=== PATIENT | male | born 1960 | race Caucasian/White ===

== ENCOUNTER 2017-06-23 13:12 | Emergency (ER) | payer MEDICAID ==
[~2017-06-23] VITALS: Wt 65.0 kg
[~2017-06-23 13:12] MED LIST: ASPI-664 PO; DOCU-144 PO; HYDR-902 PO
[2017-06-23] MEDS ORDERED: KETOROLAC 30 MG INJ IM STA (14:10)
[2017-06-23] MEDS ORDERED: DIAZEPAM 5 MG TAB PO ONE (14:30)
[2017-06-23] MEDS ORDERED: HYDROmorphONE 1 MG/ML SYG IV STA (15:02)
[2017-06-23 16:23] LABS: BASOPHILS % 0.3 % (0.0-2.0); EOSINOPHILS # 0.2 10^3/ul (0.0-0.5); EOSINOPHILS % 3.4 % (0.0-7.0); HEMATOCRIT 45.4 % (42.0-52.0); HEMOGLOBIN 15.3 g/dl (14.0-18.0); LYMPHOCYTES # 2.4 10^3/ul (0.8-2.9); LYMPHOCYTES % 36.5 % (15.0-51.0); MEAN CORPUSCULAR HEMOGLOBIN 28.6 pg (29.0-33.0); MEAN CORPUSCULAR HGB CONC 33.7 g/dl (32.0-37.0); MEAN CORPUSCULAR VOLUME 84.9 fl (82.0-101.0); MEAN PLATELET VOLUME 11.3 fl (7.4-10.4); MONOCYTE # 0.5 10^3/ul (0.3-0.9); MONOCYTES % 7.8 % (0.0-11.0); NEUTROPHILS % 51.8 % (39.0-77.0); PLATELET COUNT 195 10^3/UL (140-415); RED BLOOD COUNT 5.35 10^6/ul (4.70-6.10); RED CELL DISTRIBUTION WIDTH 14.6 % (11.5-14.5); WHITE BLOOD COUNT 6.6 10^3/ul (4.8-10.8)
[2017-06-23 16:25] LABS: ADD UMIC NO; UR ASCORBIC ACID NEGATIVE (NEGATIVE); UR BILIRUBIN (Dip) NEGATIVE (NEGATIVE); UR BLOOD (Dip) NEGATIVE (NEGATIVE); UR CLARITY CLEAR (CLEAR); UR COLOR STRAW (YELLOW); UR GLUCOSE (Dip) NEGATIVE (NEGATIVE); UR KETONES (Dip) NEGATIVE (NEGATIVE); UR LEUKOCYTE ESTERASE (Dip) NEGATIVE Leu/ul (NEGATIVE); UR NITRITE (Dip) NEGATIVE (NEGATIVE); UR SPECIFIC GRAVITY (Dip) 1.011 (1.003-1.030); UR TOTAL PROTEIN (Dip) NEGATIVE (NEGATIVE); UR UROBILINOGEN (Dip) NEGATIVE (NEGATIVE)
--- NOTE | 2017-06-23 16:28 | RADRPT ---
PROCEDURE: XR Lumbar Spine. CLINICAL INDICATION: Back pain. TECHNIQUE: Three views. AP, lateral and cone-down lateral view of the lumbar spine were obtained. COMPARISON: No prior studies are available for comparison. FINDINGS: There is normal stature and alignment of the vertebrae. There is no fracture. There is no lytic or blastic lesion. The disk height is normal. The paravertebral soft tissues are unremarkable. IMPRESSION: 1. Unremarkable images of the lumbar spine. RPTAT: QQ .Brody Hough MD, Date Time Electronically viewed and signed by .Brody Hough MD, on 06/23/2017 16:28 .R/
[2017-06-23 16:47] LABS: ALBUMIN 3.9 g/dl (3.3-4.9); ALBUMIN/GLOBULIN RATIO 1.02; BILIRUBIN,INDIRECT 0.5 mg/dl (0-1.1); BILIRUBIN,TOTAL 0.5 mg/dl (0.2-1.3); CALCIUM 9.4 mg/dl (8.4-10.2); CREATININE 0.8 mg/dl (0.61-1.24); POTASSIUM 3.8 mmol/L (3.5-5.1); TOTAL PROTEIN 7.7 g/dl (6.1-8.1)
[2017-06-23] MEDS ORDERED: CYCL-319 PO (17:03)
[2017-06-23] MEDS ORDERED: NAPR-260 PO (17:03)
--- NOTE | 2017-06-23 21:37 | ERD ---
ER Documentation Chief Complaint Date/Time DATE: 06/23/17 TIME: 21:34 Chief Complaint BACK PAIN HPI This is a 57-year-old male presenting to the emergency department complaining of lumbar back pain that radiates down his right lower leg for the past 3 days. Patient states that he is unable to walk. He has not taken any medications for this. Denies any fevers. Denies any saddle anesthesia bladder or bowel incontinence ROS All systems reviewed and are negative except as per history of present illness. Medications Home Meds Active Scripts Naproxen* (Naprosyn*) 500 Mg Tablet, 500 MG PO BID, #30 TAB Prov:GUSTAVO ARANDA PA-C 06/23/17 Cyclobenzaprine Hcl* (Cyclobenzaprine Hcl*) 10 Mg Tablet, 10 MG PO TID, #30 TAB Prov:GUSTAVO ARANDA PA-C 06/23/17 Docusate Sodium* (Colace*) 100 Mg Capsule, 100 MG PO TID, #30 CAP Prov:CAROLE PATHAK MD 06/28/16 Hydrocodone/Acetaminophen ([place] 10-325 Tablet) 1 Each Tablet, 1 TAB PO Q6H Y for PAIN, #12 TAB Prov:CAROLE PATHAK MD 06/28/16 Reported Medications Aspirin (Low Dose Aspirin) 81 Mg Tablet.dr, 81 MG PO DAILY, #30 TAB 03/27/16 Allergies Allergies: Coded Allergies: No Known Allergy (Unverified , 06/28/16) PMhx/Soc History of Surgery: Yes (HEART STENT X3, HERNIA REPAIR, APPY, cabg) Anesthesia Reaction: No Hx Neurological Disorder: No Hx Respiratory Disorders: No Hx Cardiac Disorders: Yes (CAD) Hx Psychiatric Problems: No Hx Miscellaneous Medical Probl: No Hx Alcohol Use: No Hx Substance Use: No Hx Tobacco Use: No Smoking Status: Never smoker Physical Exam Vitals Vital Signs Date Time Temp Pulse Resp B/P Pulse Ox O2 Delivery O2 Flow Rate FiO2 06/23/17 13:14 97.6 61 18 115/67 98 Physical Exam GENERAL: WD/WN, in no apparent distress, non-toxic appearing HENT: NC/AT EYES: Conjunctiva normal NECK: Supple PULM: Normal labored breathing CV: Good capillary refill GI: Non-distended, no guarding BACK: no deformities noted, normal spinal curvature, TTP on lumbar region, non- tender on spine midline, EXT: No clubbing, cyanosis, or edema NEURO: Moves on all fours, sensation intact, normal gait SKIN: intact PSYCH: Normal mood Result Diagram: 06/23/17 1605 06/23/17 1605 Results 24 hrs Laboratory Tests Test 06/23/17 16:05 06/23/17 16:15 White Blood Count 6.610^3/ul Red Blood Count 5.3510^6/ul Hemoglobin 15.3g/dl Hematocrit 45.4% Mean Corpuscular Volume 84.9fl Mean Corpuscular Hemoglobin 28.6pg Mean Corpuscular Hemoglobin Concent 33.7g/dl Red Cell Distribution Width 14.6% Platelet Count 36982^3/UL Mean Platelet Volume 11.3fl Neutrophils % 51.8% Lymphocytes % 36.5% Monocytes % 7.8% Eosinophils % 3.4% Basophils % 0.3% Nucleated Red Blood Cells % 0.0/100WBC Neutrophils # (Manual) 3.410^3/ul Lymphocytes # 2.410^3/ul Monocytes # 0.510^3/ul Eosinophils # 0.210^3/ul Basophils # 0.010^3/ul Nucleated Red Blood Cells # 0.010^3/ul Sodium Level 138mmol/L Potassium Level 3.8mmol/L Chloride Level 102mmol/L Carbon Dioxide Level 25mmol/L Anion Gap 15 Blood Urea Nitrogen 17mg/dl Creatinine 0.80mg/dl Glucose Level 78mg/dl Calcium Level 9.4mg/dl Total Bilirubin 0.5mg/dl Direct Bilirubin 0.00mg/dl Indirect Bilirubin 0.5mg/dl Aspartate Amino Transf (AST/SGOT) 26IU/L Alanine Aminotransferase (ALT/SGPT) 31IU/L Alkaline Phosphatase 89IU/L Total Protein 7.7g/dl Albumin 3.9g/dl Globulin 3.80g/dl Albumin/Globulin Ratio 1.02 Urine Color STRAW Urine Clarity CLEAR Urine pH 6.0 Urine Specific [place] 1.011 Urine Ketones NEGATIVEmg/dL Urine Nitrite NEGATIVEmg/dL Urine Bilirubin NEGATIVEmg/dL Urine Urobilinogen NEGATIVEmg/dL Urine Leukocyte Esterase NEGATIVELeu/ul Urine Hemoglobin NEGATIVEmg/dL Urine Glucose NEGATIVEmg/dL Urine Total Protein NEGATIVEmg/dl Current Medications Medications (Trade) Dose Ordered Sig/Darshan Route PRN Reason Start Time Stop Time Status Last Admin Dose Admin Ketorolac Tromethamine (Toradol) 30 mg ONCE STAT IM 06/23/17 14:10 06/23/17 14:12 DC 06/23/17 14:43 Diazepam (Valium) 10 mg ONCE ONCE PO 06/23/17 14:30 06/23/17 14:31 DC 06/23/17 14:43 Hydromorphone HCl (Dilaudid) 1 mg ONCE STAT IV 06/23/17 15:02 06/23/17 15:03 DC 06/23/17 15:15 Procedures/MDM This is a 57-year-old male presenting to the ER complaining of lumbar back pain that radiates down his right lower leg for the past 3 days. Patient likely has strain with sciatica. No evidence of any fracture or dislocation or subluxation. On x-ray did not show any evidence of fracture dislocation. In the ED patient was given Toradol, Dilaudid and Valium, he has slight improvement in pain. I discussed with patient to follow-up with his primary care physician. Discussed return to the ER for any worsening sensitive. Patient is neurovascular intact to be discharged home. He understands and agrees Departure Diagnosis: Primary Impression: Back pain Condition: Stable Patient Instructions: Back Pain (Acute Or Chronic), Back Pain W/ Sciatica Referrals: NO PRIMARY,CARE PHYSICIAN (PCP) Additional Instructions: Visite a mcguire keiko martinez para un EXAMEN.Regrese a estas instalaciones si no se mejora jonatan esperbamos o jonatan le dijimos. [place] toda la medicina cooper y jonatan se le indic. Regrese a estas instalaciones si no se mejora jonatan esperbamos o jonatan le dijimos. GUSTAVO ARANDA PA-C Jun 23, 2017 21:37
== END 2017-06-23 18:14 | disposition home or self-care (01) ==
LOC: FTE 13:12
DX: M54.5 Low back pain (principal); I25.10 Atherosclerotic heart disease of native coronary artery without angina pectoris; Z79.82 Long term (current) use of aspirin
CPT/HCPCS: 72100; 80053; 81003; 85025; 96372; 96374; J1170; J1885; Z7502; Z7610

== ENCOUNTER → 2018-05-08 | Emergency (ER) | END | disposition home or self-care (01) ==